=== PATIENT | female | born 1965 | race Caucasian/White ===

== ENCOUNTER → 2021-03-28 | Outpatient (CLI) | payer OTHER ==
--- NOTE | 2021-03-28 09:02 | CT ---
EXAMINATION TYPE: CT shoulder LT wo con DATE OF EXAM: 03/28/2021 COMPARISON: None HISTORY: 55-year-old female M75.22, Left shoulder and neck pain without injury TECHNIQUE: Contiguous axial scanning of the left shoulder without IV contrast. Coronal and sagittal r econstructions performed. For any reconstructions generated on a dedicated independent workstation. CT DLP: 303.3 mGycm Automated exposure control for dose reduction was used. FINDINGS: Small calcified granuloma incidentally seen of the left upper lobe. No pratibha fluid distention is seen along the lung and biceps tendon sheath. No significant shoulder jason int effusion or distention of the subacromial/subdeltoid bursa. There is preserved bulk of the rotator cuff musculature. Mild degenerative joint space narrowing with capsular hypertrophy at the acromioclavicular joint. No significant encroachment onto the underlying cuff. No Hill-Sachs deformity or os acromiale. There may be mild glenohumeral joint space narrowing and no significant marginal spurring. No acute fracture, subluxation, or dislocation seen. IMPRESSION: NO ACUTE OSSEOUS ABNORMALITY SEEN. THERE MAY BE MILD JOINT SPACE NARROWING AT THE GLENOHUMERAL JOINT BUT NO SIGNIFICANT DEGENERATIVE SPURRING. MILD AC JOINT OA. IF PERSISTENT CONCERN FOR BICIPITAL TENDON PATHOLOGY, CONSIDER MRI.
== END | disposition home or self-care (01) ==
LOC: RADCTMAIN 06:21
PROVIDERS: ATTEND Family Medicine
DX: M19.012 Primary osteoarthritis, left shoulder (principal)

== ENCOUNTER → 2021-05-26 | Outpatient (CLI) | payer OTHER ==
--- NOTE | 2021-05-27 12:05 | CT ---
EXAMINATION TYPE: CT cervical spine wo con DATE OF EXAM: 05/26/2021 COMPARISON: None HISTORY: cervical neuritis, Lt arm numbness CT DLP: 344.[address] of the cervical spine was performed with bone and soft tissue window settings submitted . Coronal and sagittal reconstruction is obtained. There is normal alignment and prevertebral soft tissues. C2-3, C3-4 and C4-5 within normal limits C5-6: Moderate degenerative disc space narrowing with posterior disc bulge. Ventral and dorsal spur f ormation. Mild effacement ventral thecal sac without evidence for central stenosis or disc herniation . Mild right foraminal encroachment. C6-7:Moderate degenerative disc space narrowing with posterior disc bulge. Ventral and dorsal spur fo rmation. Mild effacement ventral thecal sac without evidence for central stenosis or disc herniation. Moderate right foraminal encroachment. Change cervical apophyseal joints. C7-T1: Within normal limits IMPRESSION: 1. Degenerative disc disease and right foraminal encroachment C6-7 and C5-6.
== END | disposition home or self-care (01) ==
LOC: RADCTMAIN 09:49
PROVIDERS: ATTEND Family Medicine
DX: M50.123 Cervical disc disorder at C6-C7 level with radiculopathy (principal)
CPT/HCPCS: 72125

== ENCOUNTER → 2021-08-27 | Outpatient (CLI) | payer OTHER ==
--- NOTE | 2021-08-27 14:23 | MR ---
MRI CERVICAL SPINE: CLINICAL HISTORY: Neck pain causing numbness into bilateral hands. TECHNIQUE: Multiplanar, multisequence imaging of the cervical spine is performed without IV contrast. COMPARISON: CT cervical spine May 26, 2021. Cervical spine x-ray August 01, 2021 FINDINGS: Sagittal images of the cervical spine show the craniocervical junction to remain within nor mal limits. The cervical and upper thoracic spinal cord is normal in course, caliber, and signal. V ertebral alignment is stable and satisfactory. The vertebral body heights are normal. Mild to modera te disc space narrowing C5-C6 and C6-C7 levels is redemonstrated. The bone marrow signal intensity is within normal limits. Axial images show C2-C3, C3-C4, and C4-C5 levels all to appear within normal limits. Axial images at C5-C6 levels from broad-based posterior spur disc complex mildly effacing the anterio r thecal sac and causing mild right-sided neural foraminal narrowing. Axial images at C6-C7 level show right paracentral/foraminal spur disc complex effacing the anterolat eral thecal sac and causing [id number] right-sided neural foraminal narrowing. Axial images at C7-T1 level appear within normal limits. There is posterior disc herniation effacing the anterior thecal sac at T1-T2 level sagittal image 7. IMPRESSION: Straightening of cervical spine with degenerative changes redemonstrated at the C5-C6 and C6-C7 levels as detailed above.
== END | disposition home or self-care (01) ==
LOC: RADMRIMAIN 12:35
PROVIDERS: ATTEND Orthopaedic Surgery
DX: M47.812 Spondylosis without myelopathy or radiculopathy, cervical region (principal); M99.71 Connective tissue and disc stenosis of intervertebral foramina of cervical region
CPT/HCPCS: 72141

== ENCOUNTER → 2021-10-25 | Day surgery (SDC) | payer OTHER ==
[2021-10-23 09:19] VITALS: BMI 29.6
[~2021-10-25] MED LIST: DEXAMETHASONE SOD PHOSPHATE 10 MG/ML 1 ML VIAL ONE; IOPAMIDOL M200 10 ML VIAL ONE; IV FLUID CONTINUATION 1,000 ML IV ONE; LIDOCAINE 1% (10MG/ML) FOR IV START INTRADERMA ONE; MIDAZOLAM 2 MG/2 ML VIAL ONE; fentaNYL (PF) 50 MCG/ML 2 ML AMP ONE
[2021-10-25 06:49] VITALS: TEMP 98.5
[2021-10-25 07:03] LABS: Glucose,Whole Blood 127 mg/dL (75-99)
[2021-10-25] MEDS: LACTATED RINGERS 1,000 ML IV SCH ×2 (07:05→07:17)
--- NOTE | 2021-10-25 07:33 | P.PCN ---
Date of Procedure: 10/25/21 Procedure(s) Performed: . PROCEDURE 1. Cervical epidural steroid injection under fluoroscopic guidance, C6-7 (fluoroscopy images available in the radiology department ) 2. Cervical epidurogram. PREOPERATIVE DIAGNOSIS: 1- Cervical Degenerative Disc Diseases 2- Cervical foraminal stenosis POSTOPERATIVE DIAGNOSIS: : 1- Cervical Degenerative Disc Diseases , 2- Cervical foraminal stenosis ANESTHESIA: Local anesthesia with lidocaine 1 % , and moderate sedation, with Versed 2 mg and Fentanyl 100 mcg. EBL 0 PROCEDURE INDICATION: The patient with neck pain and radiculitis unresponsive to conservative treatment consents for procedure. PROCEDURE DESCRIPTION / TECHNIQUE: The patient was seen and identified in the preoperative area. Risks, benefits, complications, including but not limited to infections ,bleeding , allergic reactions to the medications ,and not complete pain releife, and alternatives were discussed with the patient, the patient agreed to proceed with the procedure and signed the consent. Patient was taken to the OR and time out was completed. The patient was placed in the prone position on the procedure table. A pillow was placed under the patients chest to increase the cervical interlaminar space. The cervical area was prepped and draped in the usual sterile fashion. Vital signs were closely monitored during the procedure. Conscious sedation was used during the procedure to decrease patients anxiety. Using anterior-posterior fluoroscopy, the C6-7 interlaminar space was identified and the skin over this site was marked and then infiltrated with 1% lidocaine subcutaneously. Subsequently, a 20-gauge 3-1/2-inch Tuohy epidural needle was inserted and advanced toward the epidural space by means of the ``hanging-drop technique and guided by AP and lateral fluoroscopy. The correct needle position in the epidural space was verified with the injection of 2 mL of the water soluble contrast dye [id number]-[id number] and observing an excellent epidurogram with the epidural spread of the dye, after negative aspiration for blood and CSF and in the absence of paresthesias. then, mixture containing 15 mg Dexamethasone and 2 ml of preservative-free normal saline injected and a washout of epidurogram was seen. Needle was withdrawn intact, skin was cleansed, and bandages were applied. Complications= none. Disposition= patient was placed in supine position and transferred to the recovery room area in stable condition and there was no evidence of upper or lo wer extremity motor or sensory deficit after the procedure patient was discharged from recovery room after discharge criteria met and home discharge instructions was given by the staff and patient will follow with the pain clinic in 2-4 weeks
[2021-10-25 07:37] VITALS: RESP 16
[2021-10-25 07:47] VITALS: BP 121/64; PULSE 72
--- NOTE | 2021-10-25 10:17 | FL ---
Fluoroscopy INDICATION: Pain FINDINGS: Fluoroscopy time: 3 seconds. Images obtained: 1. IMPRESSIONS: 1. Documentation of fluoroscopy.
== END | disposition home or self-care (01) ==
LOC: ORPAIN 06:04
PROVIDERS: ATTEND Specialist
DX: M50.10 Cervical disc disorder with radiculopathy, unspecified cervical region (principal); M48.02 Spinal stenosis, cervical region
CPT/HCPCS: 62321; J2250; J1100; J3010; Q9966; 99152

== ENCOUNTER → 2022-01-21 | Outpatient (CLI) | payer OTHER | END | disposition home or self-care (01) | LOC: LABPAT 09:32 | PROVIDERS: ATTEND Orthopaedic Surgery | DX: Z01.818 Encounter for other preprocedural examination (principal); M47.812 Spondylosis without myelopathy or radiculopathy, cervical region; N88.2 Stricture and stenosis of cervix uteri; R94.31 Abnormal electrocardiogram [ECG] [EKG] | CPT/HCPCS: 87070; 93005 ==

== ENCOUNTER 2022-01-28 07:05 | Observation (INO) | payer OTHER ==
--- NOTE | 2022-01-27 16:27 | P.HPOR ---
History of Present Illness H&P Date: 01/21/22 Chief Complaint: UE pain, Neck pain, Weakness [facility] Date of :[birth year] Age: 56 year Height: 5'2" Weight: 147 lbs BMI: 26.89 kg/m2 Occupation: unemployed VAS: 6 CHIEF COMPLAINT: Cervical pain HISTORY: Xrays No new xrays taken in office Trauma or injury No Work-Related No Pain description aching, sharp. Location diffuse Activity Modification yes , unable to perform bending/lifting/twisting motions regarding the neck. Hand Dominance right DOI: Chronic, no injury or trauma. DOS: None. TREATMENTS COMPLETED: 6 weeks of PT completed? No Physician directed home exercise completed? yes, without improvements. Medications yes List: Tramadol, Motrin 800mg, Flexeril all without improvements. Gabapentin 300mg (through PCP), is starting 11/21/2021 Alternative interventions Chiropractic?: No Brace: No Injections Yes (Cortisone), C6-C7 TINO x1 Did they help? No RFA: No SUBJECTIVE: Patient returns to the office for a recheck of her cervical spine and for a pre- operative review of her planned C4-C7 ACDF ([id number], [id number], [id number], [id number]). Since the time of the last appointment the patient denies any improvements to her symptoms. She continues to complain of severe cervical pain with bilateral upper extremity radiculopathy and weakness which is impacting her ability to perform most daily functions. Furthermore she notes that she has seen no improvements to her symptoms with all abovementioned treatment modalities. Otherwise the patient does report that is currently taking a course of Bactrim (prescribed through her PCP) for an ongoing left armpit infection but denies any other acute changes since the time of the last appointment. Patient denies any f/c/sob/cp, no bladder or bowel retention/incontinence, no perineal numbness/tingling, and ambulates independently. HPI: Patient last returned to the office on 12/19/2021 for a recheck of her cervical spine and to review smoking status. Regarding this the patient reports that she has been done smoking since the last appointment, noting that she has been doing well with this. Aside from this she reports no changes to her symptoms, noting that she has continued to have significant issues due to this. Otherwise she also notes that she has continued with the physician directed home exercise program and previously listed medications without improvements. Patient continues to deny any bladder or bowel retention/incontinence, no perineal numbness/tingling, and ambulates independently. Patient last returned to the office on 11/21/2021 for a recheck of her cervical spine and to review her progress following her C6-C7 TINO. WIth the injection, the patient reports that she has seen no relief to her symptoms. Additionally she has continued with the physician recommend HEP in addition to her medications stated above without any relief. Regarding her symptoms the patient reports continued severe cervical pain radiating into the bilateral upper extremities, left worse than right. Along with this she does note that her left upper extremity numbness/tingling and weakness has worsened since the last appointment, making completion of her daily tasks very challenging. Overall she reports progressive dysfunction and cannot complete many of her daily tasks due to pain. She states she cannot do therapy as she has before and it made her worse and now she cannot afford it. Additionally she reports frequent sleep disturbances due to her pain. Otherwise the patient continues to deny any bladder or bowel retention/incontinence, no perineal numbness/tingling, and ambulates independently. Patient last presented to the office on 10/03/2021 for a recheck of her cervical spine and to review the results of her EMG and MRI obtained after the time of the last appointment. Since the time of the last appointment the patient reports that her symptoms have continued to persist. She denies any improvements to her symptoms with any conservative modalities thus far. Patient has trialed the physician directed home exercise program and has found no relief with this. Otherwise she reports continued disability and cannot complete her daily activities due to the severity of her symptoms. She reports an inability to seasoner hand or hold anything with the left hand and has seen worsening ROM. Otherwise she does take Tramadol, Motrin, and Flexeril all without improvements. Otherwise she denies any bladder or bowel issues, no perineal numbness/tingling, and ambulates without the use of any aides. Ms. Acosta last presented to the office on 08/01/2021 for an evaluation of her cervical spine. She reports cervical pain ongoing for many years with no known injury or trauma to indicate an exact onset of her symptoms. Regarding her symptoms she notes an aching and sharpness diffuse throughout the neck that radiates into the bilateral upper extremities. She reports that her pain worsens with any bending/lifting/twisting motions regarding the neck. Additionally with the upper extremity pain she does report numbness and tingling about it diffusely. Due to this she notes that her daily functionality is very limited. As for treatments, the patient to the point has been managed by her PCP only, who has given her a Cortisone injection, with no improvements. Additionally she did complete a CT scan recently. Otherwise she does take Tramadol, Motrin, and Flexeril all without improvements. Otherwise she denies any bladder or bowel issues, no perineal numbness/tingling, and ambulates without the use of any aides. The patients' past social, medical, family, surgical history, as well as review of systems, have been reviewed. Please refer to the Neurosurgery History and Physical form that has been scanned in to our electronic medical record system. 14 points review of systems completed and as stated in HPI, all other systems reviewed are negative. Social History: Reviewed, see appropriate section of the chart for details. F4Tcowval: none, quit 11/21/2021 Alcohol: none P3 Family History: Reviewed, see appropriate section of the chart for details. P2 Past Medical History: Reviewed, see appropriate section of the chart for details. Current Medications: P1Rx: cyclobenzaprine 5 mg tablet Ref: 0 Rx: ibuprofen 600 mg tablet Ref: 0 Rx: metFORMIN 500 mg tablet Ref: 0 Rx: sertraline 100 mg tablet Ref: 0 Rx: traMADol 50 mg tablet Ref: 0 PHYSICAL EXAMINATION: General: Awake, alert, appropriate for age, in no acute distress. HEENT: No unusual neck masses around region of lateral neck triangle, thyroid, supraclavicular groove Heart: Regular rate and rhythm, normal S1, S2 and no murmur/gallop. Lungs: Clear to auscultation bilaterally with no use of accessory muscles. Extremities: Skin warm and dry without acute lesions, coloration, temperature, skin intact, no tenderness or erythema Integument: Hairy patches: Absent Dorsal skin dimples: Absent Cafe au lait spots: Absent Surgical incisions: No Palpation: Please see Pain drawing on Intake sheet for further detail. Midline spinal tenderness: No E6 Paralumbar tenderness: No E6 Parathoracic tenderness: No E6 Buttocks tenderness: No E6 Special findings: No POSTURAL and MUSCULO-SKELETAL EVALUATION: Coronal Balance: NEUTRAL Recumbent testing: Patient is able to lay flat on back Sagittal Balance: NEUTRAL Shoulder Profile: LEVEL Pelvic Girdle: LEVEL Neck ROM: RESTRICTED Lumbar ROM: RESTRICTED Shoulder ROM: Symmetrical Hip ROM: Symmetrical Knee ROM: Symmetrical Hands: Normal appearance, symmetrical Feet: Normal appearance, Symmetrical VASCULAR STATUS : LEFT RIGHT Wrist Pulses INTACT INTACT Pedal Pulses (Dors. pedis & post.tibialis) INTACT INTACT Color NORMAL NORMAL Edema Absent Absent NEUROLOGIC EXAMINATION: Mental Status:Awake and alert, fully oriented, with normal attention, concentration and memory, and fluent, appropriate speech. Cranial Nerves: I: Olfactory not tested. II: Visual acuity normal, no visual field deficit noted with confrontation. III,IV: Normal pupillary reflexes & intact extraocular movements without nystagmus. V,: Intact symmetrical facial sensation. VII: Intact symmetrical facial motor movement VIII: Hearing intact. IX,X: Intact gag, swallow, & normal voice. XI: Sternocleidomastoid, trapezius function intact. XII: Tongue midline with normal movements. L'hermitte's Sign: Negative / absent Spurling'Sign: Absent bilaterally. Cubital percussion test: Absent bilaterally. Tiffanie-Tinel sign - Carpal region: Absent bilaterally. Straight Leg Raising: Absent bilaterally. Crossed straight leg raise: negative O8 MOTOR EXAM (0-5/5, N/T) STRENGTH RIGHT LEFT Shoulder Abd (not part of the DASIA score) 4+ 4- Elbow Flexors 4+ 4- Elbow Extensor 4+ 4- Wrist Dorsiflexors 4+ 4- Finger Abductor 4 4- Shredded Filler Machine Wrapper Layer 4 4- Hip Flexor (Not part of DASIA Motor score) 5 5 Knee Flexor 5 5 Knee Extensor 5 5 Ankle dorsiflexor 5 5 Ankle plantarflexion 5 5 Extensor hallucis 5 5 REFLEXES(0-4/2, NT) RIGHT LEFT Upper Extremities 3 3 Lower Extremities 3 3 Pathological Reflexes RIGHT LEFT Ul's Present Present Clonus Absent Absent Babinski Absent Absent # Indicates mechanical impairment Muscle appearance: Symmetrical, without signs of atrophy or dystrophy. Sensory system (0-4, N/T) Test type RU CONY RL LL Joint-Position 2 2 2 2 Vibration 2 2 2 2 Pain & LT sense 2 2 2 2 Dermatomal Deficit: C6-C7 C6-C7 None None Gait and Functional Evaluation: Ambulatory aids: Independent Romberg's test: Intact bilaterally Toe heel walk / heel-toe walk intact while maintaining satisfactory balance? no Squatting/straightening w/o assistance to a min of 60 degree knee flexion? no Single leg stance: not intact Trendelenburg sign negative bilaterally Hand and finger dexterity intact bilaterally? No Disdiadochokinesis examination negative bilaterally? yes RADIOGRAPHIC STUDIES: Xrays of the cervical spine from 08/01/2021: body habitus limits these x-rays however demonstrates overall well-maintained alignment there is disc desiccation cervical spondylosis noted at C5 6 C6 7. Occipital cervical C1 2 joints appear stable through flexion extension no subaxial subluxation. No fracture dislocation or other lesions noted. CT of the cervical spine 05/26/2021: this demonstrates similar findings with anterior osteophytic changes as well as disc desiccation C4 5 C5 6 and C6 7. Several cervical C1 2 joints appear stable. There is mild central stenosis noted C4 5 C5 6. No fracture or other dislocation noted. MRI of the cervical spine from 08/27/2021: This is reviewed in office today with the patient and demonstrates C5 to C7 spondylosis with stenosis due to disc bulging as well as facet hypertrophy and some ligamental hypertrophy. Most of the stenosis is anterior due to the disc herniations and bulges. There is anterior osteophytic changes distance desiccation as well. There is mild cord signal change at C5-C6 which could be related to flow however it is right at the area of disc bulging and could represent myelomalacia. EMG from 09/20/[address] Olivares of the bilateral upper extremities demonstrates: This is reviewed and demonstrated C6-7 root irritation IMPRESSION AND PLAN: It was my pleasure to have seen and examined Halima. I reviewed the patient's clinical syndrome, physical findings, and imaging studies during the appointment today. It is my impression that the patient has a diagnosis of. 1. C5-C7 spondylosis with stenosis .DX:Diagnosis: Cervical spondylosis : ICD10 = M47.812 / ICD9 = 721.0 / SNOMED = 600915407 2.Right upper extremity weakness .DX:Diagnosis: Upper extremity weakness : ICD10 = G83.21 / ICD9 = 344.40 / SNOMED = 568599627 3. Right upper extremity radiculopathy .DX:Diagnosis: Right cervical radiculopathy : ICD10 = G54.2 / SNOMED = 79154300277432678 4. Cervical myelopathy .DX:Diagnosis: Cervical spondylosis with myelopathy : ICD10 = M47.12 / ICD9 = 721.1 5. C6-C7 dermatomal deficit .DX:Diagnosis: Paresthesia of right upper extremity : ICD10 = R20.2 / SNOMED = 33582576209597195 I outlined the natural course history without intervention and various interventional options. Based on my findings I suggest the following course of action: 1.Based on her imaging, physical examination, failure to improve with conservative modalities, and progressively worsening neurological deficits and motor testingI discussed treatment options with the patient, including operative and non-operative options, and they have elected to proceed with the following surgical procedure: C4-C7 ACDF (68191, 55962, [id number], [id number]) The indications, risks, benefits, and alternatives to surgery were discussed with the patient and family at length. Specifically (but not limited to) the risks of infection, stiffness, recurrence of symptoms, need for revision surgery, local numbness, neurovascular injury, and blood clots were discussed. The patient's questions were answered. The decision to proceed was made. Consent will be obtained for the procedure. 2. Smoking cessation counselling given and patient reports that she has not smoked since the time of the last appointment 11/21/21. Spine Surgery Risk Review Ms. Acosta is presenting for evaluation of Cervical pain. It was my pleasure to have seen and examined Ms. Acosta. In our visit today we have had a chance to go over subjective complaints, physical examination findings and treatments including the natural course history without intervention and various interventional options. The patients imaging demonstrates: Xrays of the cervical spine from 08/01/2021: body habitus limits these x-rays however demonstrates overall well-maintained alignment there is disc desiccation cervical spondylosis noted at C5 6 C6 7. Occipital cervical C1 2 joints appear stable through flexion extension no subaxial subluxation. No fracture dislocation or other lesions noted. CT of the cervical spine 05/26/2021: this demonstrates similar findings with anterior osteophytic changes as well as disc desiccation C4 5 C5 6 and C6 7. Several cervical C1 2 joints appear stable. There is mild central stenosis noted C4 5 C5 6. No fracture or other dislocation noted. MRI of the cervical spine from 08/27/2021: This is reviewed in office today with the patient and demonstrates C5 to C7 spondylosis with stenosis due to disc bulging as well as facet hypertrophy and some ligamental hypertrophy. Most of the stenosis is anterior due to the disc herniations and bulges. There is anterior osteophytic changes distance desiccation as well. There is mild cord signal change at C5-C6 which could be related to flow however it is right at the area of disc bulging and could represent myelomalacia. EMG from 09/20/[address] Olivares of the bilateral upper extremities demonstrates: This is reviewed and demonstrated C6-7 root irritation On physical exam, Ms. Acosta demonstrates severely restricted cervical ROM with TTP and bilateral upper extremity radiculopathy. Furthermore the patient does also demonstrates significant bilateral upper extremity weakness which correlates with her cervical myelopathy. I have explained to the patient that as their condition progresses it will cause further neurological deficits and eventual paralysis. Based on the patients imaging, physical exam, and the rapid progression and disabling nature of their symptoms, at this time I recommend surgery in the form or a: C4-C7 ACDF (08082, 90948, 61746, [id number]). I discussed the risk and benefits of this procedure at length with Ms. Acosta. The patient agreed to considered pursuing the procedure abovementioned. Prior to surgery, she should follow up with her PCP (Cardio, ID, IM etc) for clearance. Questions were invited and answered, and the patient wishes to proceed as outlined below. Currently, I am recommendin. C4-C7 anterior cervical discectomy and fusion (10648, 66611, 21666, [id number]) 2.Follow up with PCP for surgical clearance 3.Review of surgical risks and benefits as well as an educational packet on the proposed surgical procedure. Risks: All surgical procedures come with inherent risks, including those related to positioning, anesthesia, intraoperative findings, and postoperative complicati ons. It is important to understand that surgery does not come with any guarantee of a successful outcome as complications and adverse events are always possible. The patient was given a handout in office today discussing the surgical procedure and risks associated with the intervention, both of which were discussed with the patient. These risks include but are not limited to the following: * Experiencing same, different or even worse symptoms in back, neck, arms, or legs compared to before surgery. Requiring further surgery or other forms of treatment presently or at some time in the future at same or other levels of the intended spine surgery. On an extreme but fortunately relatively rare basis severe complication such as blindness, stroke, heart attack, temporary and/or permanent nerve injury, paralysis, coma, or may occur, sometimes without known explanation. Surgical complications may include but are not limited to risk of infection, fluid accumulation in the surgical dissection site, including a seroma or hematoma, that requires additional surgery, wound drainage, bleeding, new numbness or weakness, vision changes/loss, spinal fluid leakage, non-healing and/or infected incision, headaches, difficulty or inability to swallow, hoarseness, hemopneumothorax, pneumothorax, impotence, retrograde ejaculation, vaginal dryness; injury to nerves, spinal cord, blood vessels, lymphatics or other vital organs (i.e., bowel injury, injury to the great vessels); heterotopic bone formation; complications related to the hardware such as screws, rods, cages including misplaced hardware, device failure, instrumentation at the wrong spine level, hardware fracture/breakage, or hardware loosening; vertebral failure of the spinal column above or below the newly placed hardware; retained surgical instrumentations or devices and the need for further surgery. * Medical risks of the planned spine surgery include but are not limited to generalized Infections to the whole body or local areas outside of the surgical site (sepsis), heart attack, bleeding, anaphylaxis, meningitis, seizure, epilepsy, hearing loss, burn faustin, laceration of the head or other areas of the body, bruising, hypersensitivity of the skin, bladder over distension; allergic reaction; shoulder injury related to positioning; fat, blood and air clots to other areas of the body like heart, lungs, brain; failure of internal organs such as lungs, kidneys, liver and excessive bleeding. If blood transfusions are necessary, note that transfusions may cause intolerance reactions such as anaphylaxis or other complex reactions. Despite best efforts, the results of spine surgery might not heal in terms of bone, soft tissues such as skin, fascia, ligaments, and joints. Additionally, in order to achieve best possible results, spine surgery may be carried out beyond the initially planned levels and involve decompression, fusion including insertion of hardware at levels other than the original intended area of surgical interest change some portions of the procedure in order to ensure the best possible outcomes. With spine surgery and spinal fusion, there are different off label uses of instrumentation (devices, implants and hardware) as well as biological substances (bone morphogenic proteins, demineralized bone matrix) as well as using extra bone from allograft sources (i.e. cadaver bone) or autograft (iliac crest bone, ribs, or the spine itself). The patient has been given information about these practices and their inherent risks and benefits. [facility] is an educational center that serves as a training facility for neurosurgical and orthopedic [employer]PER[employer] and Nursing students. Physician assistants are medically trained surgical providers who function in the outpatient, inpatient, and operating room setting under the direct supervision of the attending surgeon. [facility] has multiple operating rooms with single and overlapping rooms running daily. They currently function under the required guidelines as produced by the [facility] Finance Committee with regards to the overlapping rooms and will continue to comply with changes to this policy as they occur. The requirements include and are complied with as follows: (1) the critical portions of the overlapping rooms will not occur at the same time, (2) the attending physician will be physically present during the critical portions of the procedure and immediately available during the entire case, and (3) a back-up attending is designated should the primary attending not be immediately available. The patient has had a chance to review all the listed information, has been given print outs detailing this information, and has had all his/her questions answered to their satisfaction. It was my pleasure to have seen and examined Ms. Acosta. In our visit today we have had a chance to go over my understanding of our patient's current condition, the natural course history without intervention and various interventional options. Questions were invited and answered, and the patient wishes to proceed as outlined above. I have seen and examined the patient for 25 minutes and we have spent more than 50% of the time in repeat and detailed counseling about the patient's condition, its natural course history with out and as much as can be predicted with surgery and re-review of various surgical treatment options. In conclusion, Ms. Acosta requested we proceed with the above suggested surgery and are willing to accept risks and limitations of the suggested surgery as nature of the disease process and our best attempts at treatment for the condition. Thank you again for allowing us to be part of your patient's care. Please don't hesitate to contact me if you have any further questions. Signed and authenticated by: Marty Burch DO [facility] Complex and Minimally Invasive Spine Surgery [address] [place] [address] Past Medical History Past Medical History: Cancer, COPD, Diabetes Mellitus, GERD/Reflux, Musculoskeletal Disorder, Osteoarthritis (OA) Additional Past Medical History / Comment(s): HX UTERINE CANCER years ago, neuropathy sharri feet, hand & left arm are numb, finishing A/B for recent brown recluse spider bite in left armpit-states is much better History of Any Multi-Drug Resistant Organisms: None Reported Past Surgical History: Appendectomy, Cholecystectomy, Hysterectomy, Orthopedic Surgery Additional Past Surgical History / Comment(s): RT SHOULDER X3, COLONOSCOPY, pain procedures Past Anesthesia/Blood Transfusion Reactions: No Reported Reaction, Family History of Problems w/ Anesthesia Additional Past Anesthesia/Blood Transfusion Reaction / Comment(s): brother had endoscopy procedure recently, got home & started having trouble breathing, back to the hospital, it was thought it was some kind of reaction to his anesthesia Smoking Status: Former smoker, Second hand smoke exposure - Past Family History Mother Family Medical History: No Reported History Medications and Allergies Home Medications Medication Instructions Recorded Confirmed Type Ibuprofen [Motrin] 600 mg PO Q8H PRN 10/23/21 01/23/22 History Sertraline [Zoloft] 100 mg PO DAILY 10/23/21 01/23/22 History metFORMIN HCL 500 mg PO BID 10/23/21 01/23/22 History Gabapentin [Neurontin] 300 mg PO HS 01/23/22 01/23/22 History Menthol [Biofreeze] 1 applic TOPICAL DIRECTED PRN 01/23/22 01/23/22 History Omeprazole [PriLOSEC] 20 mg PO DAILY 01/23/22 01/23/22 History Sulfamethoxazole/Trimethoprim 1 each PO BID 01/23/22 01/23/22 History [Bactrim Ds Tablet] Allergies Allergy/AdvReac Type Severity Reaction Status Date / Time azithromycin [From Zithromax] Allergy Rash/Hives Verified 01/23/22 10:15 Physical Examination Osteopathic Statement: *. No significant issues noted on an osteopathic structural exam other than those noted in the History and Physical/Consult.
[~2022-01-28 07:05] MED LIST changes: +ACETAMINOPHEN TAB 500 MG TAB PO PRN; -DEXAMETHASONE SOD PHOSPHATE 10 MG/ML 1 ML VIAL ONE; +GABAPENTIN 300 MG CAP PO PRN; +HYDROmorphone 0.5 MG/0.5 ML SYRINGE IVP PRN; -IOPAMIDOL M200 10 ML VIAL ONE; -IV FLUID CONTINUATION 1,000 ML IV ONE; -LIDOCAINE 1% (10MG/ML) FOR IV START INTRADERMA ONE; +LIDOCAINE 1% (10MG/ML) FOR IV START INTRADERMA PRN; -MIDAZOLAM 2 MG/2 ML VIAL ONE; +ONDANSETRON 4 MG/2 ML VIAL IVP PRN; +TRANEXAMIC ACID IN NACL,ISO-OS 1,000 MG in SALINE 1 100ML.BAG IVPB PRN; -fentaNYL (PF) 50 MCG/ML 2 ML AMP ONE
[2022-01-28] MEDS: LACTATED RINGERS 1,000 ML IV SCH ×2 (08:08→17:06)
[2022-01-28 08:33] LABS: Glucose,Whole Blood 125 mg/dL (70-110)
[2022-01-28 09:59] LABS: Basophils # (A) 0.1 k/uL (0-0.2); Basophils % (A) 1 %; Eosinophils # (A) 0.2 k/uL (0-0.7); Eosinophils % (A) 2 %; HCT 38.2 % (34.0-46.0); HGB 12.5 gm/dL (11.4-16.0); Lymphocytes # (A) 2.1 k/uL (1.0-4.8); Lymphocytes % (A) 20 %; MCH 30.7 pg (25.0-35.0); MCHC 32.7 g/dL (31.0-37.0); MCV 93.8 fL (80.0-100.0); Mean Platelet Volume 9.1; Monocytes # (A) 0.3 k/uL (0-1.0); Monocytes % (A) 3 %; Neutrophils # (A) 8.2 k/uL (1.3-7.7); Neutrophils % (A) 74 %; Platelet Count 227 k/uL (150-450); RBC 4.08 m/uL (3.80-5.40); RDW 13.3 % (11.5-15.5)
--- NOTE | 2022-01-28 09:59 | P.PN ---
Progress Note - Text Progress Note Date: 01/28/22 History and Physical UPDATE I have seen and examined the patient and reviewed the history and physical. There appear to be no significant changes in the patient's current medical status as outlined in the current History and Physical. We discussed the s urgical procedure again and answered all questions for her. She is ready to proceed.
[2022-01-28 10:11] LABS: African American GFR (CKD) >90 (>60 ml/min/1.73 sqM); Anion Gap 5 mmol/L; Blood Urea Nitrogen 19 mg/dL (7-17); Calcium 8.6 mg/dL (8.4-10.2); Carbon Dioxide 25 mmol/L (22-30); Chloride 108 mmol/L (98-107); Glucose 116 mg/dL (74-99); Non-African American GFR(CKD) >90 (>60 ml/min/1.73 sqM); Potassium 4.3 mmol/L (3.5-5.1); Sodium 138 mmol/L (137-145)
[2022-01-28] MEDS ORDERED: SUCCINYLCHOLINE CHLORIDE 100 MG/5 ML SYR IV ONE (10:34)
[2022-01-28] MEDS ORDERED: HYDROmorphone (PF) 1 MG/ML ONE (10:34)
[2022-01-28] MEDS ORDERED: PROPOFOL 10 MG/ML 20 ML VIAL IV ONE (10:34)
[2022-01-28] MEDS ORDERED: fentaNYL (PF) 50 MCG/ML 2 ML AMP ONE (10:34)
[2022-01-28] MEDS ORDERED: PHENYLEPHRINE-0.9% NACL SYG 1,000 MCG/10 ML SYRINGE ONE (10:34)
[2022-01-28] MEDS ORDERED: KETAMINE 10 MG/ML 20 ML VIAL ONE (10:34)
[2022-01-28] MEDS ORDERED: LIDOCAINE 2% INJ 20 MG/ML (2 ML VIAL) ONE (10:34)
[2022-01-28] MEDS ORDERED: MIDAZOLAM 2 MG/2 ML VIAL ONE (10:34)
[2022-01-28] MEDS ORDERED: TRANEXAMIC ACID IN NACL,ISO-OS 1,000 MG/100 ML BAG ONE (10:34)
[2022-01-28] MEDS ORDERED: DEXAMETHASONE SOD PHOSPHATE 10 MG/ML 1 ML VIAL ONE (10:34)
[2022-01-28] MEDS ORDERED: LACTATED RINGERS 1,000 ML IV ONE ×2 (11:00→13:17)
[2022-01-28] MEDS ORDERED: GELATIN SPONGE,ABSORB (LARGE) 1 EACH SPONGE MISCELLANE ONE ×2 (11:28→13:29)
[2022-01-28] MEDS ORDERED: THROMBIN (BOVINE) 5,000 UNIT VIAL MISCELLANE ONE ×2 (11:28→13:29)
[2022-01-28] MEDS ORDERED: SENNOSIDES-DOCUSATE SODIUM 1 EACH TAB PO PRN (12:38)
[2022-01-28] MEDS ORDERED: MAGNESIUM HYDROXIDE 2,400 MG/10 ML CUP PO PRN (12:38)
[2022-01-28] MEDS ORDERED: HYDROcodone/APAP 5-325MG 1 EACH TAB PO PRN (12:38)
[2022-01-28] MEDS ORDERED: CYCLOBENZAPRINE 5 MG TAB PO PRN (12:38)
[2022-01-28] MEDS ORDERED: HYDROmorphone 0.5 MG/0.5 ML SYRINGE IVP PRN (12:38)
[2022-01-28 14:53] LABS: Glucose,Whole Blood 150 mg/dL (70-110)
--- NOTE | 2022-01-28 14:54 | FL ---
Fluoroscopy INDICATION: Pain FINDINGS: Fluoroscopy time: 1 minute 1 seconds. Images obtained: 0. IMPRESSIONS: 1. Documentation of fluoroscopy.
--- NOTE | 2022-01-28 14:55 | XR ---
Fluoroscopy INDICATION: Pain FINDINGS: Fluoroscopy time: 1 minute 1 seconds. Images obtained: 14. IMPRESSIONS: 1. Documentation of fluoroscopy.
[2022-01-28] MEDS: HYDROcodone/APAP 7.5-325MG 1 EACH TAB PO PRN (16:05)
[2022-01-28] MEDS: HYDROmorphone 1 MG/ML 1 ML SYRINGE IVP PRN ×2 (16:38→22:52)
[2022-01-28 17:03] LABS: Glucose,Whole Blood 164 mg/dL (70-110)
[2022-01-28] MEDS: ACETAMINOPHEN TAB 325 MG TAB PO SCH ×2 (17:48→22:05)
[2022-01-28 19:36] LABS: Glucose,Whole Blood 169 mg/dL (70-110)
[2022-01-28] MEDS: GABAPENTIN 300 MG CAP PO SCH (22:05)
[2022-01-28] MEDS: ONDANSETRON 4 MG/2 ML VIAL IVP PRN (22:52)
[2022-01-29] MEDS: ACETAMINOPHEN TAB 325 MG TAB PO SCH ×4 (03:56→23:49)
[2022-01-29] MEDS: HYDROmorphone 1 MG/ML 1 ML SYRINGE IVP PRN ×2 (04:07→08:31)
[2022-01-29] MEDS: ONDANSETRON 4 MG/2 ML VIAL IVP PRN ×3 (04:23→16:16)
[2022-01-29 06:49] LABS: Glucose,Whole Blood 128 mg/dL (70-110)
[2022-01-29 08:23] LABS: Basophils # (A) 0.1 k/uL (0-0.2); Basophils % (A) 0 %; Eosinophils # (A) 0.1 k/uL (0-0.7); Eosinophils % (A) 1 %; HCT 39.9 % (34.0-46.0); HGB 13.6 gm/dL (11.4-16.0); Lymphocytes # (A) 1.7 k/uL (1.0-4.8); Lymphocytes % (A) 9 %; MCH 31.6 pg (25.0-35.0); MCHC 34.2 g/dL (31.0-37.0); MCV 92.4 fL (80.0-100.0); Mean Platelet Volume 11.3; Monocytes # (A) 0.5 k/uL (0-1.0); Monocytes % (A) 3 %; Neutrophils # (A) 15.7 k/uL (1.3-7.7); Neutrophils % (A) 86 %; Platelet Count 208 k/uL (150-450); RBC 4.31 m/uL (3.80-5.40); RDW 13.4 % (11.5-15.5); WBC 18.2 k/uL (3.8-10.6)
[2022-01-29] MEDS: GABAPENTIN 300 MG CAP PO SCH ×2 (08:43→20:27)
[2022-01-29 09:17] LABS: African American GFR (CKD) >90 (>60 ml/min/1.73 sqM); Anion Gap 9 mmol/L; Blood Urea Nitrogen 10 mg/dL (7-17); Calcium 8.6 mg/dL (8.4-10.2); Carbon Dioxide 25 mmol/L (22-30); Chloride 104 mmol/L (98-107); Glucose 115 mg/dL (74-99); Non-African American GFR(CKD) >90 (>60 ml/min/1.73 sqM); Potassium 4.7 mmol/L (3.5-5.1); Sodium 138 mmol/L (137-145)
[2022-01-29] MEDS: METOCLOPRAMIDE 5 MG/ML 2 ML VIAL IVP PRN ×2 (11:20→20:26)
[2022-01-29 12:05] LABS: Glucose,Whole Blood 119 mg/dL (70-110)
--- NOTE | 2022-01-29 12:07 | P.OP ---
Date of Procedure: 01/28/22 Preoperative Diagnosis: 1. 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 Left upper extremity radiculopathy with weakness 3. Borderline cervical myelopathy 4. Mechanical neck pain Postoperative Diagnosis: 1. 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 Left upper extremity radiculopathy with weakness 3. Borderline cervical myelopathy 4. Mechanical neck pain Procedure(s) Performed: 1. Anterior right-sided W[place]-Franklin approach to the anterior cervical spine 2. C4-C5 anterior interbody arthrodesis (94196) 3. C5-C6 anterior interbody arthrodesis (80438) 4. C6-C7 anterior interbody arthrodesis (14039) 5. Application of biomechanical device C4-C5 C5-C6 and C6-C7 (27450y6) 6. Application of non-integrated anterior plate C4-C5 and C5-C6 and C6-C7 (97375 3 levels) 7. Use of intraoperative microscope for visualization of decompression and neural elements (65316) 8. Use of intraoperative neuro monitoring 9. Interpretation of intraoperative fluoroscopy less than 1 hour (70337) Implants: -Choice Spine [place] Shark Cage x3 6mm, 7mm, 7mm -Choice Spine Boomerang Plate x3 -Local Autograft -Bio4 Anesthesia: GETA Surgeon: Marty Burch Marine Electrician Helper #1: Adiel Jones ( was present and assisted in all aspects of the case including positioning exposure decompression hardware placement drain placement closure dressing) Estimated Blood Loss (ml): 50 IV fluids (ml): 2,300 Urine output (ml): 150 Pathology: none sent Condition: stable Disposition: PACU Indications for Procedure: Ms. Acosta is presenting for evaluation of Cervical pain. It was my pleasure to have seen and examined Ms. Acosta. In our visit today we have had a chance to go over subjective complaints, physical examination findings and treatments including the natural course history without intervention and various interventional options. The patients imaging demonstrates: Xrays of the cervical spine from 08/01/2021: body habitus limits these x-rays however demonstrates overall well-maintained alignment there is disc desiccation cervical spondylosis noted at C5 6 C6 7. Occipital cervical C1 2 joints appear stable through flexion extension no subaxial subluxation. No fracture dislocation or other lesions noted. CT of the cervical spine 05/26/2021: this demonstrates similar findings with anterior osteophytic changes as well as disc desiccation C4 5 C5 6 and C6 7. Several cervical C1 2 joints appear stable. There is mild central stenosis noted C4 5 C5 6. No fracture or other dislocation noted. MRI of the cervical spine from 08/27/2021: This is reviewed in office today with the patient and demonstrates C5 to C7 spondylosis with stenosis due to disc bulging as well as facet hypertrophy and some ligamental hypertrophy. Most of the stenosis is anterior due to the disc herniations and bulges. There is anterior osteophytic changes distance desiccation as well. There is mild cord signal change at C5-C6 which could be related to flow however it is right at the area of disc bulging and could represent myelomalacia. EMG from 09/20/[address] Olivares of the bilateral upper extremities demonstrates: This is reviewed and demonstrated C6-7 root irritation On physical exam, Ms. Acosta demonstrates severely restricted cervical ROM with TTP and bilateral upper extremity radiculopathy. Furthermore the patient does also demonstrates significant bilateral upper extremity weakness which correlates with her cervical myelopathy. I have explained to the patient that as their condition progresses it will cause further neurological deficits and eventual paralysis. Based on the patients chaparro ging, physical exam, and the rapid progression and disabling nature of their symptoms, at this time I recommend surgery in the form or a: C4-C7 ACDF (22914, 01045, 64980, [id number]). I discussed the risk and benefits of this procedure at length with Ms. Acosta. The patient agreed to considered pursuing the procedure abovementioned. Prior to surgery, she should follow up with her PCP (Cardio, ID, IM etc) for clearance. Questions were invited and answered, and the patient wishes to proceed as outlined below. Currently, I am recommendin. C4-C7 anterior cervical discectomy and fusion Description of Procedure: The patient was brought to the holding area on the day of surgery. In the hold ing area, the patient was seen and examined by myself. The surgical site was marked with my initials using an indelible pen. The patient was taken to the operating room today and after being positively identified, received general endotracheal anesthesia by our anesthesia colleagues and bilateral sequential compression devices were placed on the lower extremities by the nursing staff. SSEP, EMG and motor-evoked potential baselines were obtained after the neuromonitoring leads were applied by the neurophysiology survey technician. Baseline MEPs and SSEPs were run showing good symmetric response in all extremities. SSEPs were also symmetric and stable. The patient was positioned on an interscapular pad on a Treos table with cervical lordosis roll and Arms were circumferentially padded. All pressure points were well padded as well. Shoulder pull-down with 3-inch tape was carried out. Preoperatively within 1 hour of incision, the patient received IV antibiotic prophylaxis and steroids. C-arm was used for bio-mapping in 2 planes. Sterile prepping and draping was completed and a safety timeout was carried out. The timeout was performed in order to confirm patient's identity, procedure, laterality, site, patient allergies, and preoperative administration of antibiotics and DVT prophylaxis. I then performed, as discussed with the patient, a RIGHT sided anterior exposure along the anterior margin of the sternocleidomastoid muscle. This was about a 4 fingerbreadth-long incision. We identified the platysma and split it longitudinally. The superficial layer of the middle cervical fascia was identified and carefully dissected and then the deep layer of it. The omohyoid was mobilized and could be retracted. The deep cervical fascia was then released over the palpable osteophytes at C4 through C7 and reflected left and right with hernandez elevators off the uncovertebral joints. Nice exposure left and right with release of the anterior soft tissues of the longus colli was achieved. A radiopaque marker was placed to confirm the appropriate surgical level. Under C-arm guidance, we verified levels. At this point, a self-retaining cervical retractor was placed, the endotracheal cuff pressure was lowered to reduce compression on the RLN and the intraoperative microscope was brought in for anterior decompression. I then removed the anterior osteophytes at C6-C7. I also used a smaller ENT rongeur to open the disc spaces, including the uncovertebral joints left and right. Bone from the anterior decompression was saved for use as autograft bone fusion material. Under lateral C-arm guidance, I then placed 14 mm traction pins of the [place] type into C6 and C7. Gentle distraction of the vertebrae was carried out until we had restored lordosis. I then spread out the C6-C7 disc after releasing the disc further with straight small curets. With the soft tissue retractors having been replaced and without any undue tension, I performed an anterior discectomy completion to the posterior inferior vertebral body wall using a combination of the high-speed bur, Kerrison punches, spinal curettes, and the microscopic instruments. The discectomy was performed to the level of the posterior longitudinal ligament. Bilateral foraminotomies and resection of the PLL was performed with the Kerrison punches to decompress the spinal cord and the exiting nerve roots. I also performed yudelka dissection of the C6 endplate and the posterior superior endplate of C7, as well as the medial edge of the superior uncovertebral joints left and right of and C7. I released the posterior longitudinal ligament and had full venetie ira dural sac as a reference for dorsal decompression of left through right. I then turned my attention toward the application of the intervertebral biomechanical device at C6-C7. The trial cages were inserted to identify the best fit. The appropriate-sized intervertebral cage was then selected, in this case a 8 mm lordotic interbody implant, packed with autograft and allograft and then inserted into the interspace using gentle impaction. A set of motor evoked potentials was run showing no change from baseline. Excess bone graft was then gently impacted into the anterior exposed gutters at C6-C7 to complete the anterior interbody arthrodesis at this level. I then performed the application of the non-integrated anterior spinal instrumentation from C6-7. A non- integrated anterior cervical plate was selected for length and then contoured as needed for lordosis with the Nigerian joiner. I templated a plate lordosed it, and secured it with temporary holding screws and then checked with AP and lateral imaging for adequate alignment and implant placement. With this having been accomplished, all screw holes were filled with 14mm 4.0 screws, depending upon intraoperative drill finding and probing. A very nice stable fixation was obtained. Biplanar imaging revealed satisfactory alignment and implant place ment. There were no electrodiagnostic changes. Next, I performed the anterior discectomy at C5-C6. Under lateral C-arm guidance, I removed self-retaining [place] distractor followed by the [place] pin from the and C7 body, sealed the pin site with bone wax and then placed 12 mm traction pin of the [place] type into the C5 body. Gentle distraction of the vertebrae was carried out until we had restored lordosis. Then using a combination of the high-speed bur, Kerrison punches, spinal curettes, and the microscopic instruments, an anterior discectomy was performed to the level of the posterior longitudinal ligament. Bilateral foraminotomies and resection of the PLL was performed with the Kerrison punches to decompress the spinal cord and the exiting nerve roots. I then turned my attention toward the application of the intervertebral biomechanical device at C5-C6. The trial cages were inserted to identify the best fit. The appropriate-sized intervertebral cage was then selected, in this case a 8 mm lordotic interbody implant, packed with autograft and allograft and then inserted into the interspace using gentle impaction. A set of motor evoked potentials was run showing no change from baseline. Excess bone graft was then gently impacted into the anterior exposed gutters at C5-C6 to complete the anterior interbody arthrodesis at this level. I then performed the application of the non-integrated anterior spinal instrumentation from C5-6. A non- integrated anterior cervical plate was selected for length and then contoured as needed for lordosis with the Nigerian joiner. I templated a plate lordosed it, and secured it with temporary holding screws and then checked with AP and lateral imaging for adequate alignment and implant placement. With this having been a ccomplished, all screw holes were filled with 14mm 4.0 screws, depending upon intraoperative drill finding and probing. A very nice stable fixation was obtained. Biplanar imaging revealed satisfactory alignment and implant placement. There were no electrodiagnostic changes. Nice purchase was obtained. Next, I performed the anterior discectomy at C4-C5. Under lateral C-arm guidance, I removed self-retaining [place] distractor followed by the [place] pin from the and C6 body, sealed the pin site with bone wax and then placed 12 mm traction pin of the [place] type into the C4 body. Gentle distraction of the vertebrae was carried out until we had restored lordosis. Then using a combination of the high-speed bur, Kerrison punches, spinal curettes, and the microscopic instruments, an anterior discectomy was performed to the level of the posterior longitudinal ligament. Bilateral foraminotomies and resection of the PLL was performed with the Kerrison punches to decompress the spinal cord and the exiting nerve roots. I then turned my attention toward the application of the intervertebral biomechanical device at C4-C5. The trial cages were inserted to identify the best fit. The appropriate-sized intervertebral cage was then selected, in this case a 8 mm lordotic interbody implant, packed with autograft and allograft and then inserted into the interspace using gentle impaction. A set of motor evoked potentials was run showing no change from baseline. Excess bone graft was then gently impacted into the anterior exposed gutters at C4-C5 to complete the anterior interbody arthrodesis at this level. I then performed the application of the non-integrated anterior spinal instrumentation from C4-5. A non- integrated anterior cervical plate was selected for length and then contoured as needed for lordosis with the Nigerian joiner. I templated a plate lordosed it, and secured it with temporary holding screws and then checked with AP and lateral imaging for adequate alignment and implant placement. With this having been accomplished, all screw holes were filled with 14mm 4.0 screws, depending upon intraoperative drill finding and probing. A very nice stable fixation was obtained. Biplanar imaging revealed satisfactory alignment and implant placement. There were no electrodiagnostic changes. The wound was then copiously irrigated and final hemostasis was achieved using FloSeal hemostatic agent and the bipolar device. At this point, the anterior cervical retractor was removed and the wound was found to have good hemostasis present. I then performed final thorough irrigation and review of the surgical site and found no internal organ injuries. I then closed the incision in layers with a deep drain. I used 3-0 Vicryl for platysma, 3-0 Vicryl for subcutaneous, and 4-0 Monocryl for skin. The skin was then dressed with Exofin and a sterile bandage. Suction canister was applied to the drain. The drain was sewn in to avoid accidental translocation. Drain dressing was applied. A Hard cervical collar was then applied. A final set of motor evoked potentials were run and no change from baseline was noted. At the conclusion of the operation, all sponge, needle, and instrument counts were deemed to be correct. The patient was awakened from their anesthetic, extubated in the operating room, transferred onto their hospital bed, and transferred to the post-anesthesia care unit in a stable condition, extubated condition. COMPLICATIONS: No known complications. No blood products given. No dural tear, no CSF leak. No changes in intraoperative neuromonitoring. DRAINS: One small round lc drain COUNTS: Needle, sponge and cottonoid count correct. UOP: See anesthesia record FLUIDS: See anesthesia record SPECIMENS SUBMITTED: None. POSTOPERATIVE PLAN: Mobilization with collar to be worn for 3 months. Head of bed should be above 30 degrees. Swallowing trial with ice chips first and then advance from there.
--- NOTE | 2022-01-29 15:28 | P.PN ---
Subjective Progress Note Date: 01/29/22 Principal diagnosis: Status post C4-C7 ACDF Patient was examined today at bedside, her was present. Dr. Burch was also available today to examine patient. Patient has been having multiple episodes of nausea and vomiting since coming out of surgery yesterday. She's been receiving Zofran as scheduled. She will having a hard time holding anything down. She does note some generalized neck discomfort. She currently is not utilizing the hard c-collar at this time. The drain remains in place with mild output. Patient denies any headaches, lightheadedness, chest pain or shortness of breath this time. Objective - Vital Signs Vital signs: Vital Signs Temp 98.4 F 01/29/22 12:40 Pulse 78 01/29/22 12:40 Resp 18 01/29/22 12:40 BP 137/69 01/29/22 12:40 Pulse Ox 96 01/29/22 12:40 FiO2 Intake & Output 01/28/22 01/29/22 01/29/22 18:59 06:59 18:59 Intake Total 2900 240 270 Output Total 230 200 Balance 2670 40 270 Weight 74.2 kg Intake: IV 2900 Intake, IV Titration 240 170 Amount Lactated Ringers 1,000 ml 240 120 @ 20 mls/hr IV .Q24H [facility] Rx#:[id number] ceFAZolin 2 gm In Sodium 50 Chloride 0.9% 50 ml @ 100 mls/hr IVPB Q8H [facility] Rx#: [id number] Oral 100 Output: Drainage 10 Anterior Neck 10 Urine 170 Emesis 200 Estimated Blood Loss 50 Other: Voiding Method Bedside Commode Bedside Commode # Voids 0 3 1 - Exam Gen: AOx3, NAD VSS stable at this time Integument: Postop dressing is intact, mild serosanguineous spotting noted. The drain remains in place with mild output ROM: Full range of motion in all major muscle groups in the bilateral upper and lower extremities, no focal deficits appreciated Sensory Exam: Senory exam to light touch is intact C5-T1 Senosry exam to light touch is intact L2-S1 Motor: 55 strength appreciated in the bilateral lower extremities with hip flexion, knee extension, knee flexion, plantar flexion, dorsiflexion, EHL, FHL 4+/5 strength in the right upper extremity with shoulder abduction, elbow extension, elbow flexion, 4/5 with wrist extension, wrist flexion, information systems analyst 4-/5 strength in the left upper extremity with shoulder abduction, elbow extension, elbow flexion, 4/5 with wrist extension, wrist flexion, information systems analyst Reflexes: Positive Deja's bilateral upper extremities Negative Babinski bilaterally negative clonus bilaterally - Labs CBC & Chem 7: 01/29/22 07:34 01/29/22 07:42 Labs: Abnormal Lab Results - Last 24 Hours (Table) 01/28/22 01/28/22 01/29/22 Range/Units 17:00 19:34 06:47 WBC (3.8-10.6) k/uL Neutrophils # (1.3-7.7) k/uL Glucose (74-99) mg/dL POC Glucose (mg/dL) 164 H 169 H 128 H (70-110) mg/dL 01/29/22 01/29/22 01/29/22 Range/Units 07:34 07:42 12:02 WBC 18.2 H (3.8-10.6) k/uL Neutrophils # 15.7 H (1.3-7.7) k/uL Glucose 115 H (74-99) mg/dL POC Glucose (mg/dL) 119 H (70-110) mg/dL Assessment and Plan Assessment: Postoperative day #1 status post C4-C7 ACDF Plan: Pain control, avoid IV pain medication at this time. Recommend use of low-dose oral medication at this time due to the nausea/vomiting GI and DVT prophylaxis, compression stockings and SCDs. Continue medications for nausea/vomitting Wound care, we will reassess dressing morning of 01/29/2022, possibly remove the drain at that time PT/OT evaluation, walker ambulation Medical recommendations Continue use of rigid c-collar when up and ambulating Further recommendations to follow Time with Patient: Less than 30
[2022-01-29 16:26] LABS: Appearance,Urine Clear (Clear); Bilirubin,Urine Negative (Negative); Blood,Urine Trace (Negative); Color,Urine Colorless; Glucose,Urine (UA) Negative (Negative); Ketones,Urine Negative (Negative); Leukocyte Esterase,Urine Negative (Negative); Nitrite,Urine Negative (Negative); Protein,Urine Negative (Negative); RBC,Urine 1 /hpf (0-5); Specific Gravity,Urine 1.001 (1.001-1.035); Squamous Epithelial Cell,Urine <1 /hpf (0-4); Urobilinogen,Urine <2.0 mg/dL (<2.0)
[2022-01-29 17:12] LABS: Glucose,Whole Blood 125 mg/dL (70-110)
[2022-01-29 19:36] VITALS: RESP 16
--- NOTE | 2022-01-29 19:40 | CONS ---
CONSULTATION This 56-year-old white female is status post cervical fusion. Postoperatively she is very groggy and in pain. Pain is 8 or 9 out of 10. She has a neck brace on. She is having no chest pain, shortness of breath. No dysuria of frequency she is asleep postoperatively. Home medicines include metformin 500 b.i.d., Zoloft 100 daily, Prilosec 20 mg daily, Motrin 600 every 8 hours, gabapentin 300 at night. Condition stable. Prognosis guarded. Fourteen-point review of systems negative except for mentioned above. PHYSICAL EXAMINATION: Temperature is 97.9, pulse 83, respiratory rate 16 to 18, blood pressure 150s over 83, O2 92% on room air. Cardiovascular S1, S2. Lungs clear. GI soft. Hematology negative Homans. Psych fair mood and affect. She is kind of sleepy, lethargic. Neurologic: Cranial nerves are intact. She is giving appropriate answers. ASSESSMENT: 1. Status post cervical fusion. 2. History of diabetes. 3. Hypertension. 4. Chronic obstructive pulmonary disease. Continue current home medicines. Accu-Chek protocol. Monitor labs. Possible leukocytosis secondary to surgery. Will make sure she has no UTI, etc. Please see further orders. MMODL / IJN: [id number] /
[2022-01-29 20:09] LABS: Glucose,Whole Blood 179 mg/dL (70-110)
[2022-01-29] MEDS: HYDROcodone/APAP 7.5-325MG 1 EACH TAB PO PRN (20:27)
--- NOTE | 2022-01-29 21:53 | CT ---
EXAMINATION TYPE: CT cervical spine wo con DATE OF EXAM: 01/29/2022 COMPARISON: 05/26/2021 HISTORY: s/p ACDF CT DLP: 419.50 mGycm Automated exposure control for dose reduction was used. Images obtained from the skull base to the T1 vertebra with no contrast. The cervical vertebrae are in normal alignment. There is placed with screws fusing anteriorly the chau tebra at C4-5 and C5-6 and C6-7. The facet joints are intact. Posterior elements are intact. There is prevertebral thickening up to 11 mm. Epiglottis is normal. Tonsils and adenoids appear normal. I see no bony destructive process. IMPRESSION: Multilevel anterior fusion surgery. No fracture. No evidence of focal bone destruction. Prevertebral soft tissue swelling measures 11 mm at the surgery site and probably typical for this cole rgery. No pathologic fluid collection. No sign of a prevertebral abscess.
[2022-01-30 05:18] VITALS: BP 130/78; PULSE 85; TEMP 98.9
[2022-01-30] MEDS: ACETAMINOPHEN TAB 325 MG TAB PO SCH (05:22)
[2022-01-30] MEDS: LACTATED RINGERS 1,000 ML IV SCH (05:23)
[2022-01-30 07:19] LABS: Glucose,Whole Blood 120 mg/dL (70-110)
--- NOTE | 2022-01-30 08:18 | P.PN ---
Subjective Progress Note Date: 01/30/22 Principal diagnosis: Status post C4-C7 ACDF Pt s/e she is doing much better today. No nausea overnight and no vomiting since yesterday. She states she feels good and wants to go home now. She denies any other sx. No f/c/sob/cp at this time. Objective - Vital Signs Vital signs: Vital Signs Temp 98.9 F 01/30/22 05:00 Pulse 85 01/30/22 05:00 Resp 16 01/30/22 05:00 BP 130/78 01/30/22 05:00 Pulse Ox 94 L 01/30/22 05:00 FiO2 Intake & Output 01/29/22 01/30/22 01/30/22 18:59 06:59 18:59 Intake Total 270 790 Balance 270 790 Intake: Intake, IV Titration 170 290 Amount Lactated Ringers 1,000 ml 120 240 @ 20 mls/hr IV .Q24H [facility] Rx#:[id number] ceFAZolin 2 gm In Sodium 50 50 Chloride 0.9% 50 ml @ 100 mls/hr IVPB Q8H [facility] Rx#: [id number] Oral 100 500 Other: Voiding Method Bedside Commode Bedside Commode # Voids 1 3 - Exam Gen: AOx3, NAD VSS stable at this time Integument: Postop dressing is intact, mild serosanguineous spotting noted. 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 4-/5 strength in the left upper extremity with shoulder abduction, elbow extension, elbow flexion, 4/5 with wrist extension, wrist flexion, 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 Reflexes: Positive Deja's bilateral upper extremities Negative Babinski bilaterally negative clonus bilaterally Incision CDI Drain min out, will DC today - Labs CBC & Chem 7: 01/29/22 07:34 01/29/22 07:42 Labs: Abnormal Lab Results - Last 24 Hours (Table) 01/29/22 01/29/22 01/29/22 Range/Units 07:34 07:42 12:02 WBC 18.2 H (3.8-10.6) k/uL Neutrophils # 15.7 H (1.3-7.7) k/uL Glucose 115 H (74-99) mg/dL POC Glucose (mg/dL) 119 H (70-110) mg/dL Urine Blood (Negative) 01/29/22 01/29/22 01/29/22 Range/Units 14:43 17:11 20:08 WBC (3.8-10.6) k/uL Neutrophils # (1.3-7.7) k/uL Glucose (74-99) mg/dL POC Glucose (mg/dL) 125 H 179 H (70-110) mg/dL Urine Blood Trace H (Negative) 01/30/22 Range/Units 07:17 WBC (3.8-10.6) k/uL Neutrophils # (1.3-7.7) k/uL Glucose (74-99) mg/dL POC Glucose (mg/dL) 120 H (70-110) mg/dL Urine Blood (Negative) Assessment and Plan Assessment: Postoperative day #2 status post C4-C7 ACDF Plan: -Appreciate devops consultant and team management. -Activity: Ambulate QID, OOB all meals, up and about, limit lifting bending twisting to less than 5 lbs. Use walker or cane if needed for stability. -Daily PT/OT, increase ambulation strength and balance. -[Brace when up and about, not needed in bed or chair] -Pain control: [Adequate at this time] -Meds: [reviewed] -GI ppx: senna, Miralax -DVT PPX: Early ambulation, TEDs, SCDs -Hygiene: Shower today. Maintain dressing clean and dry. Meticulous cleaning after BMs away from incision site -Drains: DC today -Encourage IS 10x/hr -Dispo: Home today with home healthcare
--- NOTE | 2022-01-30 09:04 | P.DS ---
Providers Date of admission: 01/29/22 04:53 Expected date of discharge: 01/30/22 Attending physician: Marty Burch DO Consults: 01/28/22 12:41 Consult Physician Routine Consulting Provider: Jarod Galindo Reason/Comments: medical management Do you want consulting provider notified?: Yes Primary care physician: Jarod Galindo [facility] Course: Date of admission: 01/28/2022 Date of discharge: 01/30/2022 Admission diagnosis: 1. 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 Left upper extremity radiculopathy with weakness 3. Borderline cervical myelopathy 4. Mechanical neck pain Discharge diagnosis: Same Attending physician: Dr. 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 At this point patient has failed conservative treatment measures and has opted to proceed with a elective C4-C7 ACDF. Hospital course: Details of patient's surgery can be found in operative report. Patient tolerated the procedure well and was subsequently transported to orthopedic floor. Patient's orthopeidc and medical care was provided daily. Patient had daily laboratory tests performed for evaluation of overall blood counts. Patient had daily physical therapy to include strengthening range of motion as well as education with walker ambulation. Patient was noted to have a relatively uneventful postoperative course. Patient reported satisfactory pain control with oral pain medications by postoperative day 2. Patient showed satisfactory progress with physical therapy. Patient moved steadily through the program and had no difficulty meeting the goals by postoperative day 2. Given patient's otherwise satisfactory course and having met physical therapy goals, plan is to discharge patient home on postoperative day 2. Discharge condition/disposition: Patient will be discharged home in stable condition. Discharge medications: Instructions are given on resumption of patient's normal daily medications per primary care recommendation, in addition patient will be prescribed Oneida 7.5 mg/325 mg; gabapentin 300 mg; Flexeril 5 mg; Duricef; senna. Spine Discharge and Recovery Instructions Date of Surgery: 01/28/2022 Diagnosis: 1. 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 Left upper extremity radiculopathy with weakness 3. Borderline cervical myelopathy 4. Mechanical neck pain Procedure: C4-C7 ACDF Medications: See medication list All medication refills should be obtained through your primary care doctor or your clinic spine surgeon. Please discuss prescription refills at your follow up appointment. Do not call the hospital for medication refills. Dressing: Leave your dressing in place for a total of 5 days post operatively. Then you may remove your dressing and leave open to air. Keep the area clean and if not able to keep area clean, then cover with sterile gauze and tape. Showering: You may shower 3 days after your procedure allowing soap and water to run over incision. Do not scrub. Do not soak. Blot dry. Follow up: Please confirm a follow up appointment with your surgeon 3 weeks post operatively. Please make an appointment to follow up with your PCP in 1-2 weeks after surgery for evaluation 3 phase, 3-week plan POST OP WEEKS 1-3 1. Lifting/carrying/pushing/pulling limited to less than 5 pounds. 2. Do not sit for longer than 15 minutes at one time. Get up and walk around. Prolonged sitting is NOT advised. If you lay down, see if you can tolerate laying down on you front (belly side) 3. Walk for periods of 15 minutes = 1 mile but no longer; do it multiple times times each day. 4. Ice your low back after activity. POST OP WEEKS 3-6 1. Lifting limited to less than 20 pounds. 2. Do not sit for longer than 30 minutes at a time. Frequently change positions. Use a sit-to stand workstation or take frequent breaks from sitting if you have returned to work. 3. Walk for 30 minutes each day. If possible, do these three or more times a day POST OP WEEKS 6+ At your 6-week appointment we will give you a physical therapy referral to focus on a core stabilization and strengthening program. You should also work on leg & buttock strengthening, hamstring & quadriceps stretching, and continue a low impact aerobic activity program such as swimming, walking, or riding a stationary bicycle. During the initial 6 weeks after your surgery, you are at the highest risk of re-injuring your spine. You should generally avoid BLTs (bending, lifting and twisting combination motions) and follow the above guidelines to reduce the chance of reinjury. You can anticipate post op appointments in our office at approximately 3 weeks and 6 weeks after your surgery. INCISION CARE: If your incision is not draining you do NOT need to cover it with a dressing. Keep your incision clean, dry and intact. In most cases, we apply skin glue, olivier or sutures to the incision at the time of surgery. This will be like a crust or have the appearance of a scab and will fall off in time on its own. The stitches or olivier need to be removed at 3 weeks post op appointment. You may begin to shower 3 days after surgery (this allows the glue to vaughan well). However, please avoid scrubbing the incision site or peeling off any of the skin glue. This will ensure optimal healing of your incision. Also, during this time avoid soaking the incision area in water - this includes swimming pools, hot tubs or baths. No ointments, lotions or oils on the incision until your surgeon allows. Leave olivier, sutures or glue in place. Neurological dysfunction that comes on suddenly can also be a sign of a stroke. Below some common symptoms of a stroke are listed: B - balance difficulty such as sudden onset walking or leaning to one side - NEW E - eye problem such as sudden double vision or trouble seeing on one side - NEW F - Facial weakness or numbness on one side - NEW A - Arm or leg weakness or numbness on one side - NEW S - Slurred speech or difficulty with word finding - NEW T - Time is BRAIN! Call 911 as soon as you recognize these symptoms Diet: Consume a regular diet rich in vegetables and lean protein such as chicken or fish. You should consume in a ratio of approximately 20% fats|40% carbohydrates|40%protein. Vegetables, sweet potatoes, brown rice or quinoa are examples of good carbohydrates. Chips, white bread, cookies and sweets/sugar are examples of bad carbohydrates. Limit your bad carbs, go wild with good carbs. 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 (1) Get Active. Physical activity can help people lose weight, control high blood pressure and cholesterol, feel emotionally better, and sleep better. (2) Control Cholesterol. Avoid a diet high in saturated fat, trans fat, & cholesterol. Limit whole milk & cream, ice cream, butter, egg yolks, processed meats (like sausage and hot dogs), and fatty meats. Choose healthy foods that are low in saturated fat, trans fat and cholesterol which include: Fruits and vegetables, fiber rich grain products (like whole grain pasta and brown rice), lean meat such as chicken, fish, nuts, seeds, and legumes. (3) Eat Better. Eat small portions. Shop at the grocery with a list and do not stray from it. Tips for a healthy diet include: Limit sodium intake to less than 1500mg daily, avoid prepackaged, processed, and fast foods, choose a diet rich in fruits, vegetables, and whole grain, high fiber foods, and limit saturated & cholesterol in your diet. (4) Manage Blood Pressure. If you have high blood pressure, you should have a cuff at home so that you can check your blood pressure regularly. Be sure you have a good cuff. An arm one is generally better than a wrist one. Bring the cuff to a doctor's appointment to validate that the measurements that your cuff are taking are accurate. Take your blood pressure twice daily when you are sitting down and relaxing. Record the numbers in a log and bring this log with you to your doctors' appointments. (5) Lose Weight if your BMI is above 25. A healthy BMI is between 19-25. To calculate Your BMI, you may use a Standard BMI Calculator on the NIH BMI website: <www.nhlbi.nih.gov/guidelines/obesity/BMI/bmicalc.htm>. Weigh oneself daily. If you are overweight, set a goal to lose weight. A pound a week loss if needed is a good target. (6) Reduce Blood Sugar. Limit foods and liquids with "added sugars." (Added sugars include sucrose, fructose, glucose, maltose, dextrose, high fructose corn syrup, corn syrup, concentrated fruit juice and honey). (7) Stop Smoking. If you smoke, quitting smoking is one of the best things that you can do for your health. Smoking increases your risk of heart attack, stroke, and peripheral vascular disease, which is a build-up of plaque in your arteries. Please discard all the cigarettes and lighters in your house. Have a plan for what you will do when you have the urge to smoke. Direct and second- hand smoke shortens your life as well as the lives of your family, friends and others around you. For your health and the health of those around you, please consider quitting! Proper Bending Body Mechanics: Maintain a wide stance with one foot slightly in front of the other. Keep your back straight. Bend utilizing the strength in your hips and knees. Do not bend at the waist. Maintain the lifted object at your waist-level close to your body. Avoid lifting weight that causes immediately pain or pain anywhere in the body afterwards. Smoking/Nicotine If there was ever one thing that you could do to increase your overall health, decrease your risk of cardiovascular problems by about 39% the second you make the choice, it is to STOP SMOKING. Your body's most instant gratification is the second you stop smoking. We have all heard the studies, read the articles but it is true, smoking is extremely bad for your overall health, and moreover it is detrimental to your bone health. Nicotine, IN ANY FORM, kills bone cells, prevents your body from healing fractures, and significantly prolongs healing after surgery. In spine surgery specifically, it increases your risk of not healing your bones to create a fusion and increases your risk of having a revision surgery due to this up to 60%. I know it is hard. I know it feels impossible. But there are ways. Take control of your life. We are here to help you through it. And when you are ready, ask us and we can direct you to help if you desire. Use the START Plan to Quit Smoking (please visit the Helpguide.org website listed below for more information): S = Set a quit date. Choose a date within the next 2 weeks, so you have enough time to prepare without losing your motivation to quit. If you mainly smoke at work, quit on the weekend, so you have a few days to adjust to the change. T = Tell family, friends, and co-workers that you plan to quit. Let your friends and family in on your plan to quit smoking and tell them you need their support and encouragement to stop. Look for a quit darlin who wants to stop smoking as well. You can help each other get through the rough times. A = Anticipate and plan for the challenges you'll face while quitting. Most people who begin smoking again do so within the first 3 months. You can help yourself make it through by preparing ahead for common challenges, such as nicotine withdrawal and cigarette cravings. R = Remove cigarettes and other tobacco products from your home, car, and work. Throw away all your cigarettes (no emergency pack!), lighters, ashtrays, and matches. Wash your clothes and freshen up anything that smells like smoke. Shampoo your car, clean your drapes and carpet, and steam your furniture. T = Talk to your doctor about getting help to quit. Your doctor can prescribe medication to help with withdrawal and suggest other alternatives. If you can't see a doctor, you can get many products over the coun ter at your local pharmacy or grocery store, including the nicotine patch, nicotine lozenges, and nicotine gum. Resources for Quitting Smoking: <https://www.[place].gov/documents/[facility]/Quit_Tob acco_Resources_for_patients_313480_7.pdf> Supplementation: Take recommended dosages of Vitamin D and Calcium to help fortify your bones and help them to heal. See your health maintenance packet for dosages and recommended levels. DVT/VTE prophylaxis: You will be given compression stockings from the hospital. Wear these daily for the first two weeks after surgery. You may take them off at night. You may be prescribed a medication to help thin your blood. Take this as directed. If you are not prescribed this medication, early and frequent ambulation has been shown to be the best prophylaxis to deep vein thrombosis and sequelae related to this event. Assessment: 1. 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 Left upper extremity radiculopathy with weakness 3. Borderline cervical myelopathy 4. Mechanical neck pain Procedures: C4 to C7 ACDF Patient Condition at Discharge: Good Plan - Discharge Summary Discharge Rx Participant: Yes New Discharge Prescriptions: New cefaDROXiL [Duricef] 500 mg PO Q12HR 5 Days #10 cap Gabapentin 300 mg PO BID #30 cap HYDROcodone/APAP 7.5-325MG [Oneida 7.5] 1 each PO Q6HR PRN #36 tab PRN Reason: Pain Cyclobenzaprine [Flexeril] 5 mg PO TID #20 tablet Sennosides/Docusate Sodium [Senna Plus 8.6-50 mg Tablet] 1 each PO DAILY #20 tablet No Action Sertraline [Zoloft] 100 mg PO DAILY Ibuprofen [Motrin] 600 mg PO Q8H PRN PRN Reason: Pain Omeprazole [PriLOSEC] 20 mg PO DAILY Gabapentin [Neurontin] 300 mg PO HS metFORMIN HCL 500 mg PO BID Sulfamethoxazole/Trimethoprim [Bactrim Ds Tablet] 1 each PO BID Menthol [Biofreeze] 1 applic TOPICAL DIRECTED PRN PRN Reason: Pain Discharge Medication List Ibuprofen [Motrin] 600 mg PO Q8H PRN 10/23/21 [History] Sertraline [Zoloft] 100 mg PO DAILY 10/23/21 [History] metFORMIN HCL 500 mg PO BID 10/23/21 [History] Gabapentin [Neurontin] 300 mg PO HS 01/23/22 [History] Menthol [Biofreeze] 1 applic TOPICAL DIRECTED PRN 01/23/22 [History] Omeprazole [PriLOSEC] 20 mg PO DAILY 01/23/22 [History] Sulfamethoxazole/Trimethoprim [Bactrim Ds Tablet] 1 each PO BID 01/23/22 [History] Cyclobenzaprine [Flexeril] 5 mg PO TID #20 tablet 01/30/22 [Rx] Gabapentin 300 mg PO BID #30 cap 01/30/22 [Rx] HYDROcodone/APAP 7.5-325MG [Oneida 7.5] 1 each PO Q6HR PRN #36 tab 01/30/22 [Rx] Sennosides/Docusate Sodium [Senna Plus 8.6-50 mg Tablet] 1 each PO DAILY #20 tablet 01/30/22 [Rx] cefaDROXiL [Duricef] 500 mg PO Q12HR 5 Days #10 cap 01/30/22 [Rx] Follow up Appointment(s)/Referral(s): Marty Burch DO [Doctor of Osteopathic Medicine] - 2 Weeks Patient Instructions/Handouts: Anterior Cervical Discectomy (DC), Anterior Cervical Discectomy (GEN) Activity/Diet/Wound Care/Special Instructions: Spine Discharge and Recovery Instructions Date of Surgery: 01/28/2022 Diagnosis: C4 to C7 spondylosis with stenosis upper extremity radiculopathy Procedure: C4 to C7 ACDF Medications: see list All medication refills should be obtained through your primary care doctor or your clinic spine surgeon. Please discuss prescription refills at your follow up appointment. Do not call the hospital for medication refills. Activity: ambulate daily out of bed with all meals limit lifting bending twisting nothing greater than 5 pounds no pushing pulling or overhead lifting Brace: Wear neck brace when up and about at all times. Do not wear while sleeping or showering. May take breaks from brace while sitting or laying and resting. Dressing: Leave your dressing in place for a total of 3 days post operatively. Then you may remove your dressing and leave open to air. Keep the area clean and if not able to keep area clean, then cover with sterile gauze and tape. Showering: You may shower 3 days after your procedure allowing soap and water to run over incision. Do not scrub. Do not soak. Blot dry. Follow up: Please confirm a follow up appointment with your surgeon 2 weeks post operatively. Please make an appointment to follow up with your PCP in 1-2 weeks after surgery for evaluation 3 phase, 3-week plan POST OP WEEKS 1-3 1. Lifting/carrying/pushing/pulling limited to less than 5 pounds. 2. Do not sit for longer than 15 minutes at one time. Get up and walk around. Prolonged sitting is NOT advised. If you lay down, see if you can tolerate laying down on you front (belly side) 3. Walk for periods of 15 minutes = 1 mile but no longer; do it multiple times times each day. 4.Ice your low back after activity. POST OP WEEKS 3-6 1. Lifting limited to less than 20 pounds. 2. Do not sit for longer than 30 minutes at a time. Frequently change positions. Use a sit-to stand workstation or take frequent breaks from sitting if you have returned to work. 3. Walk for 30 minutes each day. If possible, do these three or more times a day POST OP WEEKS 6+ At your 6-week appointment we will give you a physical therapy referral to focus on a core stabilization and strengthening program. You should also work on leg & buttock strengthening, hamstring & quadriceps stretching, and continue a low impact aerobic activity program such as swimming, walking, or riding a stationary bicycle. During the initial 6 weeks after your surgery, you are at the highest risk of re-injuring your spine. You should generally avoid BLTs (bending, lifting and twisting combination motions) and follow the above guidelines to reduce the chance of reinjury. You can anticipate post op appointments in our office at approximately 3 weeks and 6 weeks after your surgery. INCISION CARE: If your incision is not draining you do NOT need to cover it with a dressing. Keep your incision clean, dry and intact. In most cases, we apply skin glue, olivier or sutures to the incision at the time of surgery. This will be like a crust or have the appearance of a scab and will fall off in time on its own. The stitches or olivier need to be removed at 3 weeks post op appointment. You may begin to shower 3 days after surgery (this allows the glue to vaughan well). However, please avoid scrubbing the incision site or peeling off any of the skin glue. This will ensure optimal healing of your incision. Also, during this time avoid soaking the incision area in water - this includes swimming pools, hot tubs or baths. No ointments, lotions or oils on the incision until your surgeon allows. Leave olivier, sutures or glue in place. Neurological dysfunction that comes on suddenly can also be a sign of a stroke. Below some common symptoms of a stroke are listed: B - balance difficulty such as sudden onset walking or leaning to one side - NEW E - eye problem such as sudden double vision or trouble seeing on one side - NEW F - Facial weakness or numbness on one side - NEW A - Arm or leg weakness or numbness on one side - NEW S - Slurred speech or difficulty with word finding - NEW T - Time is BRAIN! Call 911 as soon as you recognize these symptoms Diet: Consume a regular diet rich in vegetables and lean protein such as chicken or fish. You should consume in a ratio of approximately 20% fats|40% carbohydrates|40%protein. Vegetables, sweet potatoes, brown rice or quinoa are examples of good carbohydrates. Chips, white bread, cookies and sweets/sugar are examples of bad carbohydrates. Limit your bad carbs, go wild with good carbs. 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 (1) Get Active. Physical activity can help people lose weight, control high blood pressure and cholesterol, feel emotionally better, and sleep better. (2) Control Cholesterol. Avoid a diet high in saturated fat, trans fat, & cholesterol. Limit whole milk & cream, ice cream, butter, egg yolks, processed meats (like sausage and hot dogs), and fatty meats. Choose healthy foods that are low in saturated fat, trans fat and cholesterol which include: Fruits and vegetables, fiber rich grain products (like whole grain pasta and brown rice), lean meat such as chicken, fish, nuts, seeds, and legumes. (3) Eat Better. Eat small portions. Shop at the grocery with a list and do not stray from it. Tips for a healthy diet include: Limit sodium intake to less than 1500mg daily, avoid prepackaged, processed, and fast foods, choose a diet rich in fruits, vegetables, and whole grain, high fiber foods, and limit saturated & cholesterol in your diet. (4) Manage Blood Pressure. If you have high blood pressure, you should have a cuff at home so that you can check your blood pressure regularly. Be sure you have a good cuff. An arm one is generally better than a wrist one. Bring the cuff to a doctor's appointment to validate that the measurements that your cuff are taking are accurate. Take your blood pressure twice daily when you are sitting down and relaxing. Record the numbers in a log and bring this log with you to your doctors' appointments. (5) Lose Weight if your BMI is above 25. A healthy BMI is between 19-25. To calculate Your BMI, you may use a Standard BMI Calculator on the NIH BMI website: <www.nhlbi.nih.gov/guidelines/obesity/BMI/bmicalc.htm>. Weigh oneself daily. If you are overweight, set a goal to lose weight. A pound a week loss if needed is a good target. (6) Reduce Blood Sugar. Limit foods and liquids with "added sugars." (Added sugars include sucrose, fructose, glucose, maltose, dextrose, high fructose corn syrup, corn syrup, concentrated fruit juice and honey). (7) Stop Smoking. If you smoke, quitting smoking is one of the best things that you can do for your health. Smoking increases your risk of heart attack, stroke, and peripheral vascular disease, which is a build-up of plaque in your arteries. Please discard all the cigarettes and lighters in your house. Have a plan for what you will do when you have the urge to smoke. Direct and second- hand smoke shortens your life as well as the lives of your family, friends and others around you. For your health and the health of those around you, please consider quitting! Proper Bending Body Mechanics: Maintain a wide stance with one foot slightly in front of the other. Keep your back straight. Bend utilizing the strength in your hips and knees. Do not bend at the waist. Maintain the lifted object at your waist-level close to your body. Avoid lifting weight that causes immediately pain or pain anywhere in the body afterwards. Smoking/Nicotine If there was ever one thing that you could do to increase your overall health, decrease your risk of cardiovascular problems by about 39% the second you make the choice, it is to STOP SMOKING. Your body's most instant gratification is the second you stop smoking. We have all heard the studies, read the articles but it is true, smoking is extremely bad for your overall health, and moreover it is detrimental to your bone health. Nicotine, IN ANY FORM, kills bone cells, prevents your body from healing fractures, and significantly prolongs healing after surgery. In spine surgery specifically, it increases your risk of not healing your bones to create a fusion and increases your risk of having a revision surgery due to this up to 60%. I know it is hard. I know it feels impossible. But there are ways. Take control of your life. We are here to help you through it. And when you are ready, ask us and we can direct you to help if you desire. Use the START Plan to Quit Smoking (please visit the Helpguide.org website listed below for more information): S = Set a quit date. Choose a date within the next 2 weeks, so you have enough time to prepare without losing your motivation to quit. If you mainly smoke at work, quit on the weekend, so you have a few days to adjust to the change. T = Tell family, friends, and co-workers that you plan to quit. Let your friends and family in on your plan to quit smoking and tell them you need their support and encouragement to stop. Look for a quit darlin who wants to stop smoking as well. You can help each other get through the rough times. A = Anticipate and plan for the challenges you'll face while quitting. Most people who begin smoking again do so within the first 3 months. You can help yourself make it through by preparing ahead for common challenges, such as nicotine withdrawal and cigarette cravings. R = Remove cigarettes and other tobacco products from your home, car, and work. Throw away all your cigarettes (no emergency pack!), lighters, ashtrays, and matches. Wash your clothes and freshen up anything that smells like smoke. Shampoo your car, clean your drapes and carpet, and steam your furniture. T = Talk to your doctor about getting help to quit. Your doctor can prescribe medication to help with withdrawal and suggest other alternatives. If you can't see a doctor, you can get many products over the counter at your local pharmacy or grocery store, including the nicotine patch, nicotine lozenges, and nicotine gum. Resources for Quitting Smoking: <https://www.[place].gov/documents/[facility]/Quit_Tobacco_Resources_for_patients_313 480_7.pdf> Supplementation: Take recommended dosages of Vitamin D and Calcium to help fortify your bones and help them to heal. See your health maintenance packet for dosages and recommen ded levels. DVT/VTE prophylaxis: You will be given compression stockings from the hospital. Wear these daily for the first two weeks after surgery. You may take them off at night. You may be prescribed a medication to help thin your blood. Take this as directed. If you are not prescribed this medication, early and frequent ambulation has been shown to be the best prophylaxis to deep vein thrombosis and sequelae related to this event. Discharge Disposition: HOME WITH HOME HEALTH SERVICES
[2022-01-30] MEDS: GABAPENTIN 300 MG CAP PO SCH (09:14)
[2022-01-30 11:35] LABS: Glucose,Whole Blood 98 mg/dL (70-110)
== END 2022-01-30 13:02 | disposition home health service (06) ==
LOC: OR 07:05 → 5NMEDONC 13:56 → OR 01-29 04:53 → 5NMEDONC 01-29 04:53
PROVIDERS: ADMIT Orthopaedic Surgery; ATTEND Orthopaedic Surgery
DX: M47.22 Other spondylosis with radiculopathy, cervical region (principal); M47.12 Other spondylosis with myelopathy, cervical region; M48.02 Spinal stenosis, cervical region; J44.9 Chronic obstructive pulmonary disease, unspecified; K21.9 Gastro-esophageal reflux disease without esophagitis; M19.90 Unspecified osteoarthritis, unspecified site; F41.9 Anxiety disorder, unspecified; F32.A Depression, unspecified; Z85.42 Personal history of malignant neoplasm of other parts of uterus; G20 Parkinson's disease; E11.40 Type 2 diabetes mellitus with diabetic neuropathy, unspecified; Z90.49 Acquired absence of other specified parts of digestive tract; Z90.710 Acquired absence of both cervix and uterus; Z98.890 Other specified postprocedural states; Z87.891 Personal history of nicotine dependence; Z79.84 Long term (current) use of oral hypoglycemic drugs; Z79.899 Other long term (current) drug therapy; Z88.1 Allergy status to other antibiotic agents
CPT/HCPCS: 97162; 86900; 86901; 80048 ×2; 85025 ×2; 86850; 81001; 72040; 72125; 22551; 22552 ×2; 22853 ×3; 22845; G0378 ×2; C1713; C1762; J2250; J1100; J2765; J0690 ×3; J2405 ×2; J3010; J1170 ×2; J2370; J0330; J2704; J2001

== ENCOUNTER → 2023-01-31 | Outpatient (CLI) | payer OTHER ==
[2023-01-31 16:59] LABS: ALT 15 U/L (8-44); AST 17 U/L (13-35); Albumin 4.6 d/dL (3.8-4.9); Albumin/Globulin Ratio 1.64 Ratio (1.60-3.17); Alkaline Phosphatase 102 U/L (41-126); BUN/Creat Ratio 17.75 Ratio (12.00-20.00); Blood Urea Nitrogen 14.2 mg/dL (9.0-27.0); Calcium 9.7 mg/dL (8.7-10.3); Carbon Dioxide 23.1 mmol/L (21.6-31.8); Chloride 104 mmol/L (96-109); Chol/HDL Ratio 3.35 Ratio; Globulin 2.8 d/dL (1.6-3.3); Glucose 103 mg/dL (70-110); LDL Cholesterol,Calculated 155.9 mg/dL (0.0-131.0); Potassium 4.4 mmol/L (3.5-5.5); Sodium 141 mmol/L (135-145); Total Bilirubin 0.2 mg/dL (0.3-1.2); Total Protein 7.4 d/dL (6.2-8.2); VLDL Calculation 17.96 mg/dL (5.00-40.00)
[2023-01-31 17:37] LABS: Basophils # (A) 0.06 X 10*3/uL (0.00-0.10); Basophils % (A) 0.5 %; Eosinophils # (A) 0.11 X 10*3/uL (0.04-0.35); HCT 43.4 % (37.2-46.3); HGB 14.3 d/dL (12.0-15.0); Lymphocytes # (A) 2.79 X 10*3/uL (0.90-5.00); MCH 30.9 pg (27.0-32.0); MCHC 32.9 d/dL (32.0-37.0); MCV 93.7 FL (80.0-97.0); Mean Platelet Volume 12.3 FL (9.5-12.2); Monocytes # (A) 0.45 X 10*3/uL (0.20-1.00); NRBC Per 100 WBC 0 X 10*3/uL (0.00-0.01); Neutrophils # (A) 7.72 X 10*3/uL (1.80-7.70); Neutrophils % (A) 69.1 %; Platelet Count 116 X 10*3/uL (140-440); RBC 4.63 X 10*6/uL (4.10-5.20); RDW 13.9 % (11.5-14.5); WBC 11.17 X 10*3/uL (4.50-10.00)
[2023-01-31 21:47] LABS: Microalbumin Creatinine Ratio <10 mg/g Cr (0-30)
== END | disposition home or self-care (01) ==
LOC: LABWHC1 10:25
PROVIDERS: ATTEND Nurse Practitioner Family
DX: Z00.00 Encounter for general adult medical examination without abnormal findings (principal); E11.9 Type 2 diabetes mellitus without complications; J44.9 Chronic obstructive pulmonary disease, unspecified; G62.9 Polyneuropathy, unspecified
CPT/HCPCS: 36415; 80053; 80061; 82043; 82306; 82570; 82607; 82746; 83036; 84443; 85025; 86803; 87086